=== PATIENT | male | born 1950 | race Caucasian/White ===

== ENCOUNTER → 2017-02-26 | Outpatient (CLI) | payer MEDICARE, BC | END | disposition home or self-care (01) | LOC: CDC 14:08 | DX: R94.31 Abnormal electrocardiogram [ECG] [EKG] (principal) | CPT/HCPCS: 93000 ==

== ENCOUNTER 2018-01-30 14:36 | Emergency (ER) | payer OTHER, BC ==
[~2018-01-30] VITALS: Ht 172.7 cm; Wt 67.9 kg
[2018-01-30 15:20] LABS: HEMATOCRIT 36.9 % (38.0-50.0); HEMOGLOBIN 12.6 G/DL (12.5-16.6); MCH 32.6 PG (29.0-34.0); MCHC 34.1 G/DL (30.0-36.0); MCV 95.6 FL (86-99); PLATELET COUNT 446 K/uL (156-360); RBC DIS.WIDTH-CV 12.1 % (11.8-14.6); RBC DIS.WIDTH-SD 42.6 % (39-53); RED BLOOD COUNT 3.86 M/uL (4.00-5.50); WHITE BLOOD COUNT 10.3 K/uL (4.1-10.2)
[2018-01-30 15:31] LABS: CHLORIDE 104 mEq/L (99-109); POTASSIUM 4.4 mEq/L (3.7-5.4); SODIUM 139 mEq/L (136-147)
[2018-01-30 15:33] LABS: GLUCOSE 100 mg/dL (70-99)
[2018-01-30 15:36] LABS: CREATININE 0.9 mg/dL (0.6-1.3); GFR ESTIMATE (CALCULATED) > 59 mL/min/ (58.99-99999)
[2018-01-30 15:37] LABS: UREA NITROGEN (BUN) 12 mg/dL (9-23)
[2018-01-30 16:08] LABS: C-REACTIVE PROTEIN 112.7 MG/L (0-10)
[2018-01-30 16:16] LABS: APPEARANCE CLEAR ((CLEAR)); BILIRUBIN NEGATIVE; BLOOD NEGATIVE; COLOR YELLOW ((YELLOW)); GLUCOSE (STRIP) NEGATIVE; KETONES 20; LEUKOCYTES NEGATIVE; NITRITE NEGATIVE; PROTEIN (STRIP) 30; SPECIFIC GRAVITY 1.027 (1.000-1.030); UCUL ADDED? NO
[2018-01-30 16:26] LABS: ERTH.SED.RATE 91 MM/HR (0-20)
[2018-01-30 18:23] VITALS: BP 119/79
[2018-02-01 11:49] LABS: LYME DISEASE SEROLOGY SCREEN POSITIVE (NEGATIVE)
== END 2018-01-30 18:25 | disposition home or self-care (01) ==
LOC: EME 14:36
PROVIDERS: Nurse Practitioner Family
DX: R50.9 Fever, unspecified (principal)
CPT/HCPCS: 71046; 80048; 81003; 85027; 85651; 86140; 86617 90; 86618; 87040; 87207; 99281; 99284